=== PATIENT | male | born 1950 | race Caucasian/White ===

== ENCOUNTER 2018-11-16 19:02 | Inpatient (IN) ==
[2018-11-16] MEDS ORDERED: ACETAMINOPHEN 325 MG TABLET PO PRN (23:15)
[2018-11-16] MEDS ORDERED: ONDANSETRON 4 MG/2 ML VIAL IV PRN (23:15)
[2018-11-16] MEDS ORDERED: MORPHINE 4 MG/1 ML VIAL IV PRN (23:15)
[2018-11-16] MEDS ORDERED: diphenhydrAMINE CAP 25 MG CAPSULE PO PRN (23:15)
[2018-11-16] MEDS ORDERED: BISACODYL 5 MG TABLET PO PRN (23:15)
[2018-11-16] MEDS ORDERED: NICOTINE 21 MG/24 HR PATCH TRANSDERM PRN (23:15)
[2018-11-16] MEDS ORDERED: hydrALAZINE 20 MG/1 ML VIAL IV PRN (23:25)
[2018-11-16] MEDS ORDERED: SODIUM CHLORIDE 0.9% 1,000 ML IV SCH (23:30)
[2018-11-16] MEDS ORDERED: METOCLOPRAMIDE 10 MG/2 ML VIAL IV ONE (23:47)
[2018-11-17] MEDS: CARVEDILOL 25 MG TABLET PO SCH ×2 (00:01→09:52)
[2018-11-17] MEDS: ROSUVASTATIN 20 MG TABLET PO SCH ×2 (00:01→20:49)
[2018-11-17] MEDS: LISINOPRIL 20 MG TABLET PO SCH ×2 (00:02→09:50)
[2018-11-17] MEDS: ISOSORBIDE DINITRATE 20 MG TABLET PO SCH ×3 (00:02→20:49)
[2018-11-17 00:10] LABS: Basophils % 0.3 % (0.0-0.8); Eosinophils % 0.1 % (0.00-10.9); Hematocrit 45.2 VOL% (42.0-52.0); Hemoglobin 14.8 GM/DL (14.0-18.0); Immature Granulocytes % 0.8 %; Immature Granulocytes Absolute 0.07 #; Lymphocytes # 3.1 10*3/uL (1.4-4.0); Lymphocytes % 33.5 % (21.2-54.2); Mean Corpuscular HGB Conc 32.7 GM/DL (32-36); Mean Corpuscular Volume 94.8 FL (87-102); Mean Platelet Volume 11.5 FL (9.6-12.0); Monocytes % 12.5 % (1.7-12.7); Neutrophils % 52.8 % (38.7-73.9); Platelet Count 130 T/CUMM (130-400); Red Blood Count 4.77 MC/CUMM (3.8-5.5); Red Cell Distribution Width 12.4 % (9.3-17.3); White Blood Count 9.3 T/CUMM (4-12)
[2018-11-17 00:52] LABS: Albumin 3.5 G/DL (3.4-5.0); Bilirubin,Total 0.4 MG/DL (0.2-1.0); Calcium 8.3 MG/DL (8.5-10.1); Osmolality,Calculated 285.2 MOS/KG (273-304); Total Protein 6.7 G/DL (6.4-8.3)
[2018-11-17 01:03] LABS: Apearance,Urine CLEAR (Clear); Bilirubin,Urine Negative (Negative); Blood, Urine Small mg/dL (Negative); Glucose,Urine (UA) Negative (Negative); Hyaline Casts,Urine 42 /LPF (0-3); Ketones,Urine Negative (Negative); Mucus,Urine Occasional /LPF (Occasional); Nitrite,Urine Negative (Negative); Protein,Urine Negative; RBC,Urine <1 /HPF (0-4); Urine Color Yellow (Yellow); Urine Specific Gravity 1.011 (1.001-1.035); Urine Urobilinogen < 2.0 EU/DL (0.2-1.0); WBC,Urine 1 /HPF (0-6)
[2018-11-17] MEDS ORDERED: SODIUM CHLORIDE 0.9% 1,000 ML IV SCH (04:00)
[2018-11-17] MEDS ORDERED: PANTOPRAZOLE 40 MG TABLET PO SCH (09:00)
[2018-11-17] MEDS ORDERED: FUROSEMIDE 20 MG TABLET PO SCH (09:00)
[2018-11-17] MEDS ORDERED: ASPIRIN 325 MG TABLET PO SCH (09:00)
[2018-11-17] MEDS: SODIUM BICARB INJ 100 MEQ in DEXTROSE 5% NACL 0.22% 1,000 ML IV SCH ×2 (10:51→18:34)
[2018-11-17 11:29] LABS: Calcium 8.2 MG/DL (8.5-10.1); Osmolality,Calculated 290.8 MOS/KG (273-304)
[2018-11-17] MEDS: ASPIRIN 325 MG TABLET PO SCH (20:49)
[2018-11-17] MEDS: PANTOPRAZOLE 40 MG TABLET PO SCH (20:49)
[2018-11-17] MEDS: CARVEDILOL 6.25 MG TABLET PO SCH (20:49)
[2018-11-18] MEDS: SODIUM BICARB INJ 100 MEQ in DEXTROSE 5% NACL 0.22% 1,000 ML IV SCH ×3 (01:00→20:33)
[2018-11-18 05:15] LABS: Basophils % 0.2 % (0.0-0.8); Eosinophils # 0.1 10*3/uL (0.0-0.87); Eosinophils % 1.1 % (0.00-10.9); Hematocrit 39.4 VOL% (42.0-52.0); Hemoglobin 13.2 GM/DL (14.0-18.0); Immature Granulocytes % 0.4 %; Immature Granulocytes Absolute 0.02 #; Lymphocytes # 1.9 10*3/uL (1.4-4.0); Lymphocytes % 34.7 % (21.2-54.2); Mean Corpuscular HGB Conc 33.5 GM/DL (32-36); Mean Corpuscular Volume 91.8 FL (87-102); Mean Platelet Volume 11.5 FL (9.6-12.0); Monocytes % 15.5 % (1.7-12.7); Neutrophils % 48.1 % (38.7-73.9); Platelet Count 128 T/CUMM (130-400); Red Blood Count 4.29 MC/CUMM (3.8-5.5); Red Cell Distribution Width 12.6 % (9.3-17.3); White Blood Count 5.5 T/CUMM (4-12)
[2018-11-18 05:30] LABS: Albumin 3.3 G/DL (3.4-5.0); Bilirubin,Total 0.8 MG/DL (0.2-1.0); Calcium 8.4 MG/DL (8.5-10.1); Osmolality,Calculated 293.3 MOS/KG (273-304); Total Protein 6.2 G/DL (6.4-8.3)
[2018-11-18] MEDS: ISOSORBIDE DINITRATE 20 MG TABLET PO SCH ×2 (08:58→20:34)
[2018-11-18] MEDS: PANTOPRAZOLE 40 MG TABLET PO SCH ×2 (08:59→20:35)
[2018-11-18] MEDS: CARVEDILOL 6.25 MG TABLET PO SCH ×2 (08:59→20:35)
[2018-11-18] MEDS: ROSUVASTATIN 20 MG TABLET PO SCH (20:35)
[2018-11-18] MEDS: ASPIRIN 325 MG TABLET PO SCH (20:35)
[2018-11-19 05:32] LABS: Basophils % 0.3 % (0.0-0.8); Eosinophils # 0.2 10*3/uL (0.0-0.87); Eosinophils % 3.2 % (0.00-10.9); Hemoglobin 12.7 GM/DL (14.0-18.0); Immature Granulocytes % 0.2 %; Immature Granulocytes Absolute 0.01 #; Lymphocytes # 2.6 10*3/uL (1.4-4.0); Lymphocytes % 41.8 % (21.2-54.2); Mean Corpuscular HGB Conc 34.3 GM/DL (32-36); Mean Corpuscular Volume 91.4 FL (87-102); Mean Platelet Volume 11.5 FL (9.6-12.0); Monocytes % 12.9 % (1.7-12.7); Neutrophils % 41.6 % (38.7-73.9); Platelet Count 128 T/CUMM (130-400); Red Blood Count 4.05 MC/CUMM (3.8-5.5); Red Cell Distribution Width 12.5 % (9.3-17.3); White Blood Count 6.2 T/CUMM (4-12)
[2018-11-19 06:03] LABS: Albumin 3.1 G/DL (3.4-5.0); Bilirubin,Total 0.7 MG/DL (0.2-1.0); Calcium 8.5 MG/DL (8.5-10.1); Osmolality,Calculated 298.3 MOS/KG (273-304)
[2018-11-19] MEDS ORDERED: LACTATED RINGERS 1,000 ML IV SCH (08:30)
[2018-11-19] MEDS: ISOSORBIDE DINITRATE 20 MG TABLET PO SCH (08:35)
[2018-11-19] MEDS: PANTOPRAZOLE 40 MG TABLET PO SCH (08:36)
[2018-11-19] MEDS: CARVEDILOL 6.25 MG TABLET PO SCH (08:36)
[2018-11-19] MEDS: SODIUM BICARB INJ 100 MEQ in DEXTROSE 5% NACL 0.22% 1,000 ML IV SCH (08:43)
[2018-11-19] MEDS ORDERED: LIDOCAINE 2% 5 ML VIAL ONE (09:00)
[2018-11-19] MEDS ORDERED: PROPOFOL 200 MG/20 ML VIAL IV ONE (09:00)
[2018-11-19] MEDS ORDERED: POTASSIUM CHLORIDE 20 MEQ TABLET PO ONE (09:00)
[2018-11-19 15:17] VITALS: BP 179/88
== END 2018-11-19 15:34 | disposition home or self-care (01) | DRG 683 ==
LOC: N.2E 22:04 → SUATTDRO 23:10
PROVIDERS: ADMIT Internal Medicine; ATTEND Family Medicine

== ENCOUNTER 2022-02-28 15:39 | Inpatient (IN) ==
[2022-02-28] MEDS ORDERED: ONDANSETRON 4 MG/2 ML VIAL ONE (16:08)
[2022-02-28 16:09] LABS: Basophils % 0.4 % (0.0-0.8); Eosinophils # 0.2 10*3/uL (0.0-0.87); Eosinophils % 1.7 % (0.00-10.9); Hematocrit 46.1 VOL% (42.0-52.0); Immature Granulocytes % 0.4 %; Immature Granulocytes Absolute 0.05 #; Lymphocytes # 2.5 10*3/uL (1.4-4.0); Lymphocytes % 22.8 % (21.2-54.2); Mean Corpuscular HGB Conc 32.5 GM/DL (32-36); Mean Corpuscular Volume 96.2 FL (87-102); Mean Platelet Volume 10.3 FL (9.6-12.0); Monocytes # 0.3 10*3/uL (0.11-0.8); Neutrophils % 71.7 % (38.7-73.9); Platelet Count 159 T/CUMM (130-400); Red Blood Count 4.79 MC/CUMM (3.8-5.5); Red Cell Distribution Width 12.5 % (9.3-17.3); White Blood Count 11.1 T/CUMM (4-12)
[2022-02-28] MEDS ORDERED: ONDANSETRON 4 MG/2 ML VIAL IV STA (16:19)
[2022-02-28 16:21] LABS: INR 1.1; Partial Thromboplastin Time 30.9 SECS (23.7-32.9)
[2022-02-28] MEDS ORDERED: NITROGLYCERIN SL 0.4 MG TABLET SL PRN (16:41)
[2022-02-28] MEDS ORDERED: DEXTROSE 10% 250 ML BAG IV PRN (16:42)
[2022-02-28] MEDS ORDERED: GLUCAGON 1 MG VIAL IM PRN (16:42)
[2022-02-28 16:43] LABS: Alanine Aminotransferase 61 U/L (16-61); Albumin 3.8 G/DL (3.4-5.0); Alkaline Phosphatase 90 U/L (45-117); Aspartate Amino Transferase 103 U/L (0-37); Blood Urea Nitrogen 25 MG/DL (7-18); Calcium 9.7 MG/DL (8.5-10.1); Carbon Dioxide 29 MMOL/L (21-32); Chloride 109 MMOL/L (98-107); Glucose 174 MG/DL (74-106); Osmolality,Calculated 284.5 MOS/KG (273-304); Potassium 5.4 MMOL/L (3.5-5.1); Sodium 139 MMOL/L (136-145); Total Protein 8.1 G/DL (6.4-8.2)
[2022-02-28] MEDS ORDERED: ALUMINUM/MAGNES/SIMETH MAX STR 30 ML UDCUP PO PRN (16:44)
[2022-02-28] MEDS ORDERED: BISACODYL 5 MG TABLET PO PRN (16:44)
[2022-02-28] MEDS ORDERED: ONDANSETRON 4 MG/2 ML VIAL IV PRN (16:44)
[2022-02-28] MEDS ORDERED: MAGNESIUM SULF RIDER 2 GM/50 ML PREMIX IV PRN (16:44)
[2022-02-28] MEDS ORDERED: MORPHINE 2 MG/1 ML SYRINGE IV PRN (16:44)
[2022-02-28] MEDS ORDERED: ZALEPLON 5 MG CAPSULE PO PRN (16:44)
[2022-02-28] MEDS ORDERED: MAGNESIUM SULF RIDER 4 GM/100 ML PREMIX IV PRN (16:44)
[2022-02-28] MEDS ORDERED: PROMETHAZINE INJ 12.5 MG in SODIUM CHLORIDE 0.9% 50 ML IV STA (16:51)
[2022-02-28] MEDS ORDERED: PROMETHAZINE 25 MG/1 ML VIAL ONE (16:54)
[2022-02-28] MEDS: SODIUM CHLORIDE 0.9% 1,000 ML IV SCH (17:40)
[2022-02-28] MEDS: NITROGLYCERIN 2% OINT 1 INCH/GM PACK TOP SCH ×2 (17:41→23:20)
[2022-02-28] MEDS ORDERED: lisinopriL 20 MG TABLET PO SCH (21:00)
[2022-02-28] MEDS ORDERED: ROSUVASTATIN 20 MG TABLET PO SCH (21:00)
[2022-02-28] MEDS: PANTOPRAZOLE 40 MG TABLET PO SCH (22:02)
[2022-02-28] MEDS: ASPIRIN 325 MG TABLET PO SCH (22:02)
[2022-02-28] MEDS: carvediloL 25 MG TABLET PO SCH (22:15)
[2022-02-28] MEDS: INSULIN REGULAR 100 UNIT/ML SUBCUT SCH (22:33)
[2022-03-01] MEDS ORDERED: ENOXAPARIN 80 MG/0.8 ML SYRINGE SUBCUT ONE (02:00)
[2022-03-01 06:16] LABS: Basophils % 0.3 % (0.0-0.8); Eosinophils % 0.2 % (0.00-10.9); Hematocrit 40.9 VOL% (42.0-52.0); Hemoglobin 13.2 GM/DL (14.0-18.0); Immature Granulocytes % 0.6 %; Immature Granulocytes Absolute 0.09 #; Lymphocytes # 2.1 10*3/uL (1.4-4.0); Lymphocytes % 13.7 % (21.2-54.2); Mean Corpuscular HGB Conc 32.3 GM/DL (32-36); Mean Corpuscular Volume 99.5 FL (87-102); Mean Platelet Volume 11.2 FL (9.6-12.0); Monocytes # 1.7 10*3/uL (0.11-0.8); Neutrophils % 74.2 % (38.7-73.9); Platelet Count 124 T/CUMM (130-400); Red Blood Count 4.11 MC/CUMM (3.8-5.5); Red Cell Distribution Width 12.8 % (9.3-17.3); White Blood Count 15.1 T/CUMM (4-12)
[2022-03-01 06:34] LABS: Albumin 3.2 G/DL (3.4-5.0); Bilirubin,Total 0.7 MG/DL (0.20-1.00); Calcium 8.9 MG/DL (8.5-10.1); Osmolality,Calculated 283.7 MOS/KG (273-304); Risk Ratio 2.56; Total Protein 6.9 G/DL (6.4-8.2); VLDL Cholesterol 15.6 MG/DL
[2022-03-01 06:35] LABS: Potassium 6.2 MMOL/L (3.5-5.1)
[2022-03-01 06:36] LABS: Band Neutrophils 1 % (0-10); Lymphocytes 12 % (20-55); Total Cells Counted 100
[2022-03-01] MEDS: NITROGLYCERIN 2% OINT 1 INCH/GM PACK TOP SCH ×4 (07:16→23:01)
[2022-03-01] MEDS ORDERED: SODIUM POLYSTYRENE SULFATE 15 GM/60 ML BOTTLE PO ONE (07:41)
[2022-03-01] MEDS: SODIUM CHLORIDE 0.9% 1,000 ML IV SCH ×2 (07:50→15:47)
[2022-03-01] MEDS: INSULIN REGULAR 100 UNIT/ML SUBCUT SCH ×4 (07:58→21:29)
[2022-03-01] MEDS: carvediloL 25 MG TABLET PO SCH ×2 (13:05→21:28)
[2022-03-01] MEDS: PANTOPRAZOLE 40 MG TABLET PO SCH ×2 (13:05→21:28)
[2022-03-01] MEDS ORDERED: SODIUM ZIRCONIUM CYCLOSILICATE 10 GM PACK PO PRN (14:48)
[2022-03-01] MEDS: ASPIRIN 325 MG TABLET PO SCH (21:28)
[2022-03-02] MEDS: SODIUM CHLORIDE 0.9% 1,000 ML IV SCH ×2 (00:47→10:45)
[2022-03-02] MEDS: NITROGLYCERIN 2% OINT 1 INCH/GM PACK TOP SCH (05:20)
[2022-03-02 05:58] LABS: Basophils % 0.3 % (0.0-0.8); Eosinophils # 0.2 10*3/uL (0.0-0.87); Eosinophils % 1.9 % (0.00-10.9); Hematocrit 38.8 VOL% (42.0-52.0); Hemoglobin 12.2 GM/DL (14.0-18.0); Immature Granulocytes % 0.4 %; Immature Granulocytes Absolute 0.04 #; Lymphocytes # 2.9 10*3/uL (1.4-4.0); Mean Corpuscular HGB Conc 31.4 GM/DL (32-36); Mean Corpuscular Volume 99.5 FL (87-102); Mean Platelet Volume 11.2 FL (9.6-12.0); Monocytes # 1.7 10*3/uL (0.11-0.8); Monocytes % 15.4 % (1.7-12.7); Platelet Count 111 T/CUMM (130-400); Red Cell Distribution Width 12.7 % (9.3-17.3); White Blood Count 10.8 T/CUMM (4-12)
[2022-03-02 06:32] LABS: Albumin 2.8 G/DL (3.4-5.0); Bilirubin,Total 0.4 MG/DL (0.20-1.00); Calcium 8.1 MG/DL (8.5-10.1); Osmolality,Calculated 281.5 MOS/KG (273-304); Potassium 4.6 MMOL/L (3.5-5.1); Total Protein 6.1 G/DL (6.4-8.2)
[2022-03-02 06:56] LABS: Hepatitis B Core IgM Quant 0.14 Index; Hepatitis B Surface Ag Quant < 0.10 Index; Hepatitis B Surface Ag Result Non-Reactive (NonReactive); Hepatitis C Virus Ab Quant 0.05 Index; Hepatitis C Virus Ab Result Non-Reactive (NonReactive)
[2022-03-02] MEDS ORDERED: POTASSIUM CHLORIDE RIDER 10 MEQ/100 ML PREMIX IV PRN (07:32)
[2022-03-02] MEDS ORDERED: MAGNESIUM SULF RIDER 2 GM/50 ML PREMIX IV PRN (07:32)
[2022-03-02] MEDS: INSULIN REGULAR 100 UNIT/ML SUBCUT SCH ×4 (08:16→21:13)
[2022-03-02] MEDS ORDERED: MAGNESIUM SULF RIDER 2 GM/50 ML PREMIX IV ONE (10:33)
[2022-03-02] MEDS: PANTOPRAZOLE 40 MG TABLET PO SCH ×2 (10:45→21:15)
[2022-03-02] MEDS ORDERED: ENOXAPARIN 80 MG/0.8 ML SYRINGE SUBCUT SCH (11:00)
[2022-03-02] MEDS: ENOXAPARIN 80 MG/0.8 ML SYRINGE SUBCUT SCH (11:39)
[2022-03-02] MEDS: ASPIRIN 325 MG TABLET PO SCH (21:15)
[2022-03-03] MEDS: SODIUM CHLORIDE 0.9% 1,000 ML IV SCH ×2 (01:11→13:00)
[2022-03-03] MEDS: ENOXAPARIN 80 MG/0.8 ML SYRINGE SUBCUT SCH (01:12)
[2022-03-03 06:16] LABS: Basophils % 0.3 % (0.0-0.8); Eosinophils # 0.2 10*3/uL (0.0-0.87); Eosinophils % 2.2 % (0.00-10.9); Hematocrit 40.4 VOL% (42.0-52.0); Hemoglobin 13.3 GM/DL (14.0-18.0); Immature Granulocytes % 0.4 %; Immature Granulocytes Absolute 0.03 #; Lymphocytes # 2.2 10*3/uL (1.4-4.0); Lymphocytes % 27.7 % (21.2-54.2); Mean Corpuscular HGB Conc 32.9 GM/DL (32-36); Mean Platelet Volume 10.9 FL (9.6-12.0); Monocytes # 1.3 10*3/uL (0.11-0.8); Neutrophils % 53.4 % (38.7-73.9); Platelet Count 121 T/CUMM (130-400); Red Blood Count 4.21 MC/CUMM (3.8-5.5); Red Cell Distribution Width 12.4 % (9.3-17.3); White Blood Count 7.9 T/CUMM (4-12)
[2022-03-03 06:42] LABS: Eosinophils 1 % (0-10); Lymphocytes 23 % (20-55); Total Cells Counted 100
[2022-03-03 06:44] LABS: Calcium 8.9 MG/DL (8.5-10.1); Osmolality,Calculated 279.3 MOS/KG (273-304); Platelet Estimate Adequate; Potassium 4.5 MMOL/L (3.5-5.1)
[2022-03-03 07:00] LABS: Potassium 4.6 MMOL/L (3.5-5.1)
[2022-03-03] MEDS ORDERED: diphenhydrAMINE CAP 50 MG CAPSULE PO ONE (07:00)
[2022-03-03] MEDS ORDERED: DIAZEPAM 5 MG TABLET PO ONE (07:00)
[2022-03-03 07:02] LABS: Calcium 8.8 MG/DL (8.5-10.1)
[2022-03-03 07:03] LABS: Albumin 3.1 G/DL (3.4-5.0)
[2022-03-03 07:04] LABS: Osmolality,Calculated 278.4 MOS/KG (273-304)
[2022-03-03 07:08] LABS: Bilirubin,Total 0.6 MG/DL (0.20-1.00); Total Protein 6.9 G/DL (6.4-8.2)
[2022-03-03] MEDS ORDERED: fentaNYL 100 MCG/2 ML VIAL ONE (07:26)
[2022-03-03] MEDS ORDERED: MIDAZOLAM 2 MG/2 ML VIAL ONE (07:26)
[2022-03-03] MEDS ORDERED: GLUCAGON 1 MG VIAL IM PRN (08:04)
[2022-03-03] MEDS ORDERED: DEXTROSE 50% 25 GM/50 ML VIAL IV PRN (08:04)
[2022-03-03] MEDS: INSULIN REGULAR 100 UNIT/ML SUBCUT SCH ×3 (08:49→16:16)
[2022-03-03] MEDS ORDERED: carvediloL 6.25 MG TABLET PO SCH (09:00)
[2022-03-03] MEDS ORDERED: CLOPIDOGREL 75 MG TABLET PO SCH (09:00)
[2022-03-03] MEDS ORDERED: ASPIRIN EC 81 MG TABLET PO SCH (09:00)
[2022-03-03] MEDS: PANTOPRAZOLE 40 MG TABLET PO SCH (09:57)
[2022-03-03 17:21] VITALS: BP 134/78
== END 2022-03-03 17:14 | disposition home or self-care (01) | DRG 281 ==
LOC: EDUNIT# 15:39 → N.ED 15:39 → N.EDINP 16:43 → N.TELES 18:12
PROVIDERS: ADMIT Internal Medicine Cardiovascular Disease; ATTEND Internal Medicine Cardiovascular Disease